=== PATIENT | female | born 1995 | race Caucasian/White ===

== ENCOUNTER 2019-01-29 19:51 | Emergency (ER) | payer OTHER ==
--- NOTE | 2019-01-29 20:02 | EDPHY ---
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 She is unsure if the needle punctured her skin and was unable to express any blood. She cleaned the site where she thought she was punctured. The patient who was receiving the insulin has Hepatitis B surface antibody, which means he was vaccinated. The patient is also HIV negative. She is up to date on her vaccinations and at a low risk for barb an infectious disease. No fever, headache, body aches, lightheadedness, chest pain , heart palpitations, shortness of breath, cough, abdominal pain, urinary or bowel complaints, numbness, paresthesias. REVIEW OF SYSTEMS: A 10 point review of systems was performed and is negative with the exception of the elements mentioned in the history of present illness. PHYSICAL EXAM: HR, BP, O2 Sat, RR. Temp noted General Appearance: Alert, well hydrated, appropriate, and non-toxic appearing. Eyes: Pupils equal, round, reactive to light and accommodation, EOMI, no trauma , no injection. Respiratory: No retractions, no distress, no wheezes, and no accessory muscle use. Lungs are clear to auscultation bilaterally. Musculoskeletal: Normal active ROM of all extremities, atraumatic. Neurological: Alert, appropriate, and interactive. Skin: No obvious needle stick. No rashes, good turgor, no nodules on palpation. Past medical history: Denies Past surgical history: Denies Family history: Denies Social history: care taker, single DIAGNOSTICS/PROCEDURES/CRITICAL CARE TIME: Not indicated. DIFFERENTIAL DIAGNOSIS: The differential diagnosis for the patient's needle stick included but was not limited to infectious disease including Hep B or C, HIV. 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 She is unsure if the needle punctured her skin and was unable to express any blood. She cleaned the site where she thought she was punctured. I am unable to find any significant needle stick. The patient who was receiving the insulin has Hepatitis B surface antibody and is also HIV negative. She is up to date on her vaccinations and at a low risk for barb an infectious disease. She will not need to start any medications at this time due to the low risk. Patient will need to follow up with the infectious disease clinic. Return precautions provided; patient is comfortable with this plan. Departure - Departure Disposition: Home, Routine, Self-Care Clinical Impression: Needle stick injury of finger Qualifiers: Encounter type: initial encounter Qualified Code(s): S61.239A - Puncture wound without foreign body of unspecified finger without damage to nail, initial encounter Condition: Good Instructions: Needle Stick Injuries (ED) Additional Instructions: Follow up with infectious disease next week. Referrals: Aby Carlson MD [Medical Doctor] - As per Instructions Report Scribed for: Maximino Purcell Report Scribed by: Jess Augustin Date of Report: 01/29/19 Time of Report: 20:01
[2019-01-29 20:20] VITALS: BP 124/74
[2019-01-29 20:25] LABS: PLATELET COUNT 290 10^3/uL (150-400)
[2019-01-29 22:35] LABS: HEPATITIS A ANTIBODY TOTAL NEGATIVE (NEGATIVE); HEPATITIS C ANTIBODY TOTAL NEGATIVE (NEGATIVE); HIV TYPE 1 AND 2 NEGATIVE (NEGATIVE)
== END 2019-01-29 20:20 | disposition home or self-care (01) ==
LOC: FLAB 19:51 → EDSTATUS 19:58
DX: S61.239A Puncture wound without foreign body of unspecified finger without damage to nail, initial encounter (principal); Y99.0 Civilian activity done for income or pay; Y93.89 Activity, other specified
CPT/HCPCS: 86708-90; G0472